=== PATIENT | female | born 1970 | race Caucasian/White ===

== ENCOUNTER 2019-08-04 06:34 | Outpatient (RCR) | payer OTHER, SELFPAY | END 2019-09-02 23:59 | disposition home or self-care (01) | LOC: SPT 06:34 | PROVIDERS: Family Provider Family Medicine; PCP Family Medicine; Referring Provider Specialist; Visit Provider Specialist | DX: M17.11 Unilateral primary osteoarthritis, right knee (principal) | CPT/HCPCS: 97001 ==

== ENCOUNTER 2019-09-03 06:00 | Outpatient (RCR) | payer OTHER, SELFPAY | END 2019-10-01 23:59 | disposition home or self-care (01) | LOC: SPT 06:00 | PROVIDERS: Family Provider Family Medicine; PCP Family Medicine; Referring Provider Specialist; Visit Provider Specialist | DX: M17.11 Unilateral primary osteoarthritis, right knee (principal); M25.561 Pain in right knee | CPT/HCPCS: 97110 ==

== ENCOUNTER 2019-10-02 06:00 | Outpatient (RCR) | payer OTHER, SELFPAY | END 2019-11-01 23:59 | disposition home or self-care (01) | LOC: SPT 06:00 | PROVIDERS: Family Provider Family Medicine; PCP Family Medicine; Referring Provider Specialist; Visit Provider Specialist | DX: M17.12 Unilateral primary osteoarthritis, left knee (principal) | CPT/HCPCS: 97110 ==

== ENCOUNTER 2019-11-02 06:00 | Outpatient (RCR) | payer OTHER, SELFPAY | END 2019-12-01 23:59 | disposition home or self-care (01) | LOC: SPT 06:00 | PROVIDERS: Family Provider Family Medicine; PCP Family Medicine; Referring Provider Specialist; Visit Provider Specialist | DX: M17.11 Unilateral primary osteoarthritis, right knee (principal) | CPT/HCPCS: 97110 ==

== ENCOUNTER → 2019-12-22 09:01 | Outpatient (BNVA) | payer OTHER, SELFPAY | PROVIDERS: Family Provider Family Medicine; PCP Family Medicine; Visit Provider Nurse Practitioner Family | DX: N39.41 Urge incontinence (principal); R35.0 Frequency of micturition | CPT/HCPCS: 81001 ==

== ENCOUNTER → 2020-04-26 12:55 | Outpatient (BNVA) | payer OTHER, SELFPAY | PROVIDERS: Family Provider Family Medicine; Visit Provider Nurse Practitioner Family | DX: R35.0 Frequency of micturition (principal) | CPT/HCPCS: 81001 ==

== ENCOUNTER → 2020-05-22 13:46 | Outpatient (BNVA) | payer OTHER, SELFPAY | PROVIDERS: Family Provider Family Medicine; Visit Provider Nurse Practitioner Family | DX: N39.41 Urge incontinence (principal); R35.0 Frequency of micturition | CPT/HCPCS: 81003 ==

== ENCOUNTER 2020-05-24 11:00 | Outpatient (CLI) | payer OTHER, SELFPAY ==
--- NOTE | 2020-05-24 11:06 | MM_ITS ---
WS: [id number] BILATERAL DIGITAL SCREENING MAMMOGRAPHY WITH CAD CLINICAL INFORMATION: SCREENING HISTORY: Screening mammogram. No current complaints. COMPARISON: July 13, 2018 TECHNIQUE: Bilateral CC and MLO views. FINDINGS: Scattered fibroglandular densities bilaterally. No suspicious focal mass, asymmetry, calcifications, or architectural distortion. No evidence of malignancy. MM/[place] [id number] IMPRESSION: BI-RADS: 1-Negative FOLLOW UP: 1 Year Follow-up Recommend return to annual screening mammography.
== END 2020-05-24 11:01 | disposition home or self-care (01) ==
LOC: RADSHAW 11:03
PROVIDERS: PCP Family Medicine; Visit Provider Family Medicine
DX: Z12.31 Encounter for screening mammogram for malignant neoplasm of breast (principal)
CPT/HCPCS: 77067

== ENCOUNTER → 2020-08-10 11:55 | Outpatient (BNVA) | payer OTHER, SELFPAY | PROVIDERS: PCP Family Medicine; Visit Provider Nurse Practitioner Family | DX: R35.0 Frequency of micturition (principal); N39.41 Urge incontinence | CPT/HCPCS: 81003 ==

== ENCOUNTER 2020-09-07 12:42 | Emergency (ER) | payer OTHER, SELFPAY ==
[2020-09-07 12:49] VITALS: BP 201/132; PULSE 96; RESP 24; TEMP 37.1; O2SAT 96; BMI 79.0
[2020-09-07 13:09] VITALS: PULSE 93; RESP 23; O2SAT 88
--- NOTE | 2020-09-07 13:17 | ECG_ITS ---
[facility] Test Date: 2020-09-07 Pat Name: Leda Huerta Department: Room: Gender: Female Lead Electrical Controls Engineer: : 1970 Requested By: Amna Benton I Order Number: [id number] Reading MD: Javier Maher M.D. Measurements Intervals [place] Rate: 76 P: 43 MS: 128 QRS: 66 QRSD: 116 T: 42 QT: 361 QTc: 406 Interpretive Statements SINUS RHYTHM MODERATE INTRAVENTRICULAR CONDUCTION DELAY [110+ ms QRS DURATION] Compared to ECG 08/06/2018 14:35:55 Intraventricular conduction delay now present Electronically Signed On 09-08-2020 10:54:48 AVIONICS MECHANIC by Javier Maher M.D. [id number]
[2020-09-07 13:36] LABS: Basophils % 0.4 %; Eosinophils # 0.1 10^3/uL (0.0-0.8); Hematocrit 40.2 % (37.0-47.0); Hemoglobin 12.7 g/dL (11.5-15.3); Lymphocytes # 1.9 10^3/uL (0.8-4.8); Mean Corpuscular HGB Conc 31.6 g/dL (30.0-36.0); Mean Corpuscular Hemoglobin 28.1 pg (28.0-34.0); Mean Corpuscular Volume 88.9 fL (81-99); Mean Platelet Volume 10.5 fL (7.4-10.4); Monocytes # 0.5 10^3/uL (0.2-0.9); Monocytes % 6.8 %; Neutrophils # 4.38 10^3/uL (1.8-7.7); Neutrophils % 63.4 %; Nucleated Red Blood Cells % 0 %; Platelet Count 216 10^3/cmm (130-400); Red Blood Count 4.52 10^6/uL (4.1-5.3); Red Cell Distribution Width 12.8 % (12.1-15.1); White Blood Count 6.9 10^3/uL (4.0-10.0)
[2020-09-07 13:56] LABS: Alanine Aminotransferase 19 U/L (0-33); Albumin Level 4.1 g/dL (3.5-5.2); Alkaline Phosphatase 92 IU/L (35-105); Anion Gap 12.9 (5-19); Aspartate Amino Transferase 15 U/L (0-32); Blood Urea Nitrogen 14 mg/dL (6-20); Calcium 9.3 mg/dL (8.5-10.5); Carbon Dioxide 25 mmol/L (22-29); Chloride 103 mmol/L (98-107); Globulin 2.8 g/dL (1.3-4.6); Glomerular Filtration Rate 131.7 mL/min (90-130); Glucose 108 mg/dL (65-115); Osmolality Calculated 285 mOsm/kg (285-295); Potassium 3.9 mmol/L (3.5-5.1); Sodium 137 mmol/L (136-145); Total Bilirubin 0.3 mg/dL (0.15-1.2); Total Protein 6.9 g/dL (6.6-8.7)
[2020-09-07 13:57] LABS: Troponin(5th) Baseline 9 ng/L (0-10)
--- NOTE | 2020-09-07 13:57 | ED_ITS ---
HPI - General Adult General: Chief complaint: General Medical Stated complaint: high bp Time Seen by Provider: 09/07/20 12:55 Source: patient Mode of arrival: ambulatory Limitations: no limitations History of Present Illness: HPI narrative: This 50-year-old female patient presents to the emergency department with elevated blood pressure. She has been noticing that her blood pressure has been elevated in the last few weeks with associated vertigo and headache. Today about 10 AM she developed another headache and was not feeling right so she checked her blood pressure and it was significantly elevated at 188/100. She was then advised to come to the emergency department to be evaluated. She says her headache is much better now although it is not gone completely, she is no longer dizzy. Her blood pressure was very high in the ED and the systolic was above 200 on first check. She denies any chest pain, nausea or vomiting. Denies any urinary symptoms. Denies any difficulty breathing. Associated symptoms: Reports headache(s); Deny dyspnea, nausea, rash, palpitations or vomiting Review of Systems General: Reports: 10 or more systems reviewed and unremarkable except in HPI and below Const: Denies: fever(s), chills or body aches Eyes: Denies: change in vision or blurry vision ENMT: Denies: throat pain, enlarged tonsils, odynophagia, hoarseness, mouth pain or swelling of lips/tongue Card: Denies: palpitations, irregular heart rhythm, edema or swelling of feet/ankles Resp: Denies: dyspnea, productive cough or non-productive cough GI: Denies: abdominal pain, nausea or vomiting : Denies: flank pain, difficulty voiding, dysuria, urinary frequency, urinary urgency or urinary hesitancy Musc: Denies: neck pain, back pain or extremity swelling Skin/Breast: Denies: rash, pruritus or erythema Neuro: Reports: headache(s); Denies: numbness in extremities or weakness in extremities Endo: Denies: polyuria, polydipsia or tired all the time [facility] ED PFSH: Medical History (Updated 09/07/20 @ 15:40 by Amna Benton MD, [facility] [place]) Hypertension Morbid obesity with BMI of 70 and over, adult Peroneal tendinitis Primary osteoarthritis of right knee Urgency incontinence Urinary frequency Surgical History Hx of cholecystectomy Hx of foot surgery Family History Father Diabetes Other Cancer Social History Smoking and tobacco status: never smoked Alcohol intake: never Adopted: No Caregiver/support person: No Lives independently: Yes Marital status: Current occupational status: employed History of recent travel: No Current gender identity: Female Physical Exam Const: COMMON NORMALS: no acute distress, patient oriented x3, no limitations, alert and well nourished NUTRITIONAL APPEARANCE: obese morbidly obese HENMT: COMMON NORMALS: normocephalic, atraumatic and moist oral mucous membr anes HEAD & SCALP: normocephalic and atraumatic Neck/C-Spine: COMMON NORMALS: no meningeal signs and no JVD Resp: COMMON NORMALS: normal respiratory effort, No retractions, No use of accessory muscles, clear to auscultation bilaterally and percussion normal AUSCULTATION: clear to auscultation bilaterally PERCUSSION: percussion normal Cardio: COMMON NORMALS: no JVD, regular rate, regular rhythm, S1 normal heart sound present, S2 normal heart sound present, No gallops present (Cardio), No clicks present (Cardio), No murmurs present (Cardio), No rub (Cardio) and Peripheral pulses 2+ throughout RATE: regular rate RHYTHM: regular rhythm HEART SOUNDS: S1 normal heart sound present and S2 normal heart sound present PERIPHERAL PULSES: Peripheral pulses 2+ throughout GI: COMMON NORMALS: Normal to inspection, nondistended, normoactive bowel sounds present, Soft to palpation, non-tender, No hepatosplenomegaly present, no masses and no bruits PALPATION: Yes Soft to palpation and Yes No hepatosplenomegaly present Extremity: COMMON NORMALS: normal to inspection, full ROM, capillary refill normal, no calf tenderness and no pedal edema Neuro: COMMON NORMALS: patient oriented x3 SENSORIUM/ORIENTATION: Yes alert MENINGEAL SIGNS: Yes no meningeal signs Skin: COMMON NORMALS: no rashes or lesions noted, no wounds, turgor normal, no jaundice, no petechiae and no mottling GENERAL SKIN EXAM: no rashes or lesions noted and turgor normal Course Reevaluation(s): Reevaluation #1: Discussed her lab findings with her. Negat harshal for acute findings. Negative high-sensitivity troponin. Renal function is unremarkable. Blood pressure has improved. We will send her home with a prescription for lisinopril. She is advised to discontinue Myrbetriq and to follow-up with her primary care for another medication. She voiced understanding and is in agreement with the plan. Time: 15:40 Vital Signs: Vital signs: Vital Signs Temperature 98.7 F 09/07/20 12:49 Pulse Rate 85 09/07/20 14:55 Respiratory Rate 24 H 09/07/20 14:55 Blood Pressure 160/110 09/07/20 14:55 Pulse Oximetry 99 09/07/20 14:55 MDM - General Adult MDM Narrative: Medical decision making narrative: 50-year-old female patient with no prior history of hypertension presents to the emergency department with elevated blood pressure. She recently started a medication that could be contributing to her elevated blood pressure. She has noticed her blood pressure has been elevated basically from the beginning of the year. Blood pressure significantly elevated in the ED but no significant end organ damage. She was given a dose of hydralazine in the emergency department as her blood pressure was significantly elevated. She is discharged home with a prescription for lisinopril and she is to start it if her blood pressure remains elevated at home. Lab Data: Labs: Lab Results 09/07/20 09/07/20 09/07/20 Range/Units 13:00 13:00 13:00 WBC 6.9 (4.0-10.0) 10^3/ uL RBC 4.52 (4.1-5.3) 10^6/u L Hgb 12.7 (11.5-15.3) g/dL Hct 40.2 (37.0-47.0) % MCV 88.9 (81-99) fL MCH 28.1 (28.0-34.0) pg MCHC 31.6 (30.0-36.0) g/dL RDW 12.8 (12.1-15.1) % Plt Count 216 (130-400) 10^3/c mm MPV 10.5 H (7.4-10.4) fL Neut % (Auto) 63.4 % Lymph % (Auto) 27.0 % [place] % (Auto) 6.8 % Eos % (Auto) 2.0 % Baso % (Auto) 0.4 % Neut # (Auto) 4.38 (1.8-7.7) 10^3/u L Lymph # (Auto) 1.9 (0.8-4.8) 10^3/u L [place] # (Auto) 0.5 (0.2-0.9) 10^3/u L Eos # (Auto) 0.1 (0.0-0.8) 10^3/u L Baso # (Auto) 0.0 (0.0-0.1) 10^3/u L Nucleated RBC % (a uto) 0 % Nucleated RBCs # 0.0 /100WBC Sodium 137 (136-145) mmol/L Potassium 3.9 (3.5-5.1) mmol/L Chloride 103 (98-107) mmol/L Carbon Dioxide 25 (22-29) mmol/L Anion Gap 12.9 (5-19) BUN 14 (6-20) mg/dL Creatinine 0.5 (0.5-0.9) mg/dL GFR Calculation 131.7 H (90-130) mL/min Glucose 108 (65-115) mg/dL Calculated Osmolal ity 285 (285-295) mOsm/k g Calcium 9.3 (8.5-10.5) mg/dL Total Bilirubin 0.3 (0.15-1.2) mg/dL AST 15 (0-32) U/L ALT 19 (0-33) U/L Alkaline Phosphata se 92 (35-105) IU/L Troponin T Baselin e 9 (0-10) ng/L Total Protein 6.9 (6.6-8.7) g/dL Albumin 4.1 (3.5-5.2) g/dL Globulin 2.8 (1.3-4.6) g/dL EKG Data^: EKG 1: Attestation: I personally reviewed and interpreted this EKG as follows: EKG interpretation date: 09/07/20 EKG interpretation time: 13:40 Prior EKG tracings: not available for review Interpretation: Normal sinus rhythm. Heart rate [address] changes. EKG 2: Attestation: I personally reviewed and interpreted this EKG as follows: EKG interpretation date: 09/07/20 EKG interpretation time: 15:11 Prior EKG tracings: available for review Interpretation: Normal sinus rhythm. Heart rate [address] changes. Unchanged from earlier. Discharge Plan Discharge Patient Disposition: Home Clinical Impression: Hypertension Qualifiers: Hypertension type: essential hypertension Qualified Code(s): I10 - Essential (primary) hypertension Condition: Stable Prescriptions: New lisinopril 10 mg tablet 10 mg PO DAILY Qty: 30 RF: 0 Continued medroxyprogesterone [Depo-Provera] 150 mg/mL suspension See Rx Instructions .ROUTE .COMPLEX RF: 0 fluticasone propionate [Children's Flonase Allergy Rlf] 50 mcg/actuation spray,suspension 1 spray INTRANASAL DAILY@06 RF: 0 celecoxib [Celebrex] 200 mg capsule 200 mg PO BID Qty: 60 RF: 0 hydrocodone-acetaminophen 7.5-300 mg tablet 1 tab PO BID PRN (Reason: Pain) RF: 0 Discontinued Myrbetriq 25 mg tablet extended release 24 hr 25 mg PO DAILY@06 RF: 0 Discharge Orders: Discharge ED (Routine); Ordered 09/07/20 Ordered By: Amna Benton Referrals: Joselin Rueda MD [Primary Care Provider] - 1-3 days Discharge Diet: Usual diet Discharge Activity: Increase activity as tolerated Patient Instructions: Hypertension (ED) Activity Restrictions/Additional Instructions: Return for any new or worsening symptoms. Follow-up with your primary care provider within 3 days. Take the antihypertensives if your blood pressure remains elevated. I would like you to discontinue the Myrbetriq as it may be contributing to hypertension. Consume a low-salt diet. Coding Level of Care Code ED Refinery Operator Coking for Chg Fwd Exam Comprehensive
[2020-09-07 14:05] VITALS: PULSE 78; RESP 100; O2SAT 100
[2020-09-07 14:18] VITALS: BP 200/110; O2SAT 96
[2020-09-07 14:55] VITALS: BP 160/110; PULSE 85; RESP 24; O2SAT 99
[2020-09-07] MEDS: hyDRALAzine 25 mg Tablet PO (14:55)
--- NOTE | 2020-09-07 15:17 | ECG_ITS ---
[facility] Test Date: 2020-09-07 Pat Name: Leda Huerta Department: Room: Gender: Female Power Tong Operator: : 1970 Requested By: Amna Benton I Order Number: [id number] Reading MD: Javier Maher M.D. Measurements Intervals [place] Rate: 78 P: 35 MA: 157 QRS: 73 QRSD: 119 T: 38 QT: 368 QTc: 420 Interpretive Statements SINUS RHYTHM WITH SINUS ARRHYTHMIA POSSIBLE INFERIOR MYOCARDIAL INFARCTION , PROBABLY OLD [30 ms Q WAVE IN II/aVF] Compared to ECG 09/07/2020 13:39:53 Myocardial infarct finding now present Intraventricular conduction delay no longer present Electronically Signed On 09-08-2020 11:08:20 BINGO CHECKER by Javier Maher M.D. [id number]
[2020-09-07 15:53] VITALS: BP 160/98; PULSE 77; O2SAT 96
== END 2020-09-07 15:54 | disposition home or self-care (01) ==
PROVIDERS: Emergency Provider Family Medicine; PCP Family Medicine
DX: I10 Essential (primary) hypertension (principal)
CPT/HCPCS: 12345; 80053; 84484; 85025; 93005; 99281; 99283

== ENCOUNTER → 2021-04-18 13:02 | Outpatient (BNVA) | payer OTHER, SELFPAY | PROVIDERS: PCP Family Medicine; Visit Provider Nurse Practitioner Family | DX: I10 Essential (primary) hypertension (principal); N39.9 Disorder of urinary system, unspecified | CPT/HCPCS: 80048 ==

== ENCOUNTER → 2021-04-30 15:50 | Outpatient (BNVA) | payer OTHER, SELFPAY | PROVIDERS: PCP Family Medicine; Visit Provider Podiatrist Foot & Ankle Surgery | DX: M79.672 Pain in left foot (principal) | CPT/HCPCS: 73610; 73630 ==

== ENCOUNTER 2022-09-30 12:52 | Emergency (ER) | payer OTHER, SELFPAY ==
[2022-09-30] VITALS (7 sets, daily range): BP systolic 150–220; BP diastolic 90–115; PULSE 64–92; RESP 18–20; TEMP 36.6; O2SAT 92–100; BMI 80.6
--- NOTE | 2022-09-30 13:20 | XR_ITS ---
WS: [id number] Portable AP upright chest, 09/30/2022 Clinical Data: dyspnea/cough Comparison: Portable chest, 08/06/2018. Findings: No nodules, masses or effusions are seen. The heart is slightly enlarged. The pulmonary vas cularity is not increased. No pneumonia or pneumothorax is seen. XR/XR chest 1V portable [id number] Impression: Cardiomegaly.
--- NOTE | 2022-09-30 13:49 | ECG_ITS ---
[facility] Test Date: 2022-09-30 Pat Name: Leda Huerta Department: Room: Gender: Female Wafer Fabrication Technician: : 1970 Requested By: Reji Vega Order Number: [id number] Lyric MD: Ana Maria اعلراقي M.D. Measurements Intervals [place] Rate: 75 P: 66 CT: 148 QRS: 93 QRSD: 104 T: 10 QT: 365 QTc: 410 Interpretive Statements Possible sinus rhythm with a sinus arrhythmia. Because of the baseline artifact, difficult to discern the rhythm BORDERLINE RIGHT AXIS DEVIATION [QRS AXIS > 90] NONSPECIFIC ST & T-WAVE ABNORMALITY Compared to ECG 09/07/2020 15:11:13 T-wave abnormality now present Myocardial infarct finding no longer present Electronically Signed On 10-01-2022 14:10:52 DRAFTER REFRIGERATION by Ana Maria العراقي M.D. [id number]
[2022-09-30] MEDS: hyDRALAzine 20 mg/mL INJ 1 mL 10 MG IVP (13:56)
[2022-09-30] MEDS: amlodipine 10 mg Tablet PO (14:02)
[2022-09-30 14:03] LABS: Basophils % 0.4 %; Eosinophils # 0.1 10^3/uL (0.0-0.8); Eosinophils % 1.7 %; Hematocrit 40.1 % (37.0-47.0); Hemoglobin 12.8 g/dL (11.5-15.3); Lymphocytes % 24.8 %; Mean Corpuscular HGB Conc 31.9 g/dL (30.0-36.0); Mean Corpuscular Hemoglobin 29.4 pg (28.0-34.0); Mean Platelet Volume 11.6 fL (7.4-10.4); Monocytes # 0.5 10^3/uL (0.2-0.9); Monocytes % 6.6 %; Neutrophils # 5.18 10^3/uL (1.8-7.7); Neutrophils % 65.7 %; Nucleated Red Blood Cells % 0 %; Platelet Count 247 10^3/cmm (130-400); Red Blood Count 4.36 10^6/uL (4.1-5.3); Red Cell Distribution Width 13.8 % (12.1-15.1); White Blood Count 7.9 10^3/uL (4.0-10.0)
--- NOTE | 2022-09-30 14:28 | ED_ITS ---
HPI - General Adult General: Chief complaint: General Medical Stated complaint: high bp Time Seen by Provider: 09/30/22 13:19 Source: patient Mode of arrival: ambulatory History of Present Illness: 60-year-old female presents to the emergency room with complaints of elevated blood pressure. She states last night she felt like she had a syncopal episode when she tried to get out of bed. She has no symptoms denies any chest pain no difficulty with vision speech or swallowing. Patient currently is on lisinopril 10 mg daily. She has a BMI of 81. And is difficult to get an accurate blood pressure. Onset (ago): hour(s) Associated symptoms: Deny chest pain, confusion, cough, diaphoresis, decreased appetite, dyspnea, fevers/chills, headache(s), malaise, nausea, rash, palpitations, seizures, short of breath, syncope, vomiting or weakness Review of Systems Const: Denies: fever(s), chills, fatigue, malaise or diaphoresis ENMT: Denies: throat pain, ear or mastoid pain, nasal discharge or nasal congestion Card: Denies: chest pain, palpitations or syncope Resp: Denies: dyspnea GI: Denies: abdominal pain, nausea or vomiting : Denies: flank pain, difficulty voiding, dysuria, urinary frequency or urinary urgency Musc: Denies: neck pain or back pain Skin/Breast: Denies: rash or pruritus Neuro: Denies: headache(s) or confusion PFS ED PFSH: Medical History (Updated 09/30/22 @ 16:33 by Reji Jaimes DO) Hypertension Morbid obesity with BMI of 70 and over, adult Peroneal tendinitis Primary osteoarthritis of right knee Urgency incontinence Urinary frequency Surgical History Hx of cholecystectomy Hx of foot surgery Family History Father Diabetes Other Cancer Social History Smoking and tobacco status: never smoked Alcohol intake: never Adopted: No Caregiver/support person: No Lives independently: Yes Marital status: Current occupational status: employed Current gender identity: Female Physical Exam Const: COMMON NORMALS: no acute distress GENERAL APPEARANCE: cooperative and comfortable ORIENTATION/CONSCIOUSNESS: Yes awake, Yes oriented to person, Yes oriented to place and Yes oriented to time HENMT: COMMON NORMALS: normocephalic, atraumatic and hearing grossly normal bilaterally HEAD & SCALP: normocephalic and atraumatic Resp: COMMON NORMALS: normal respiratory effort, No retractions, No use of acc essory muscles and clear to auscultation bilaterally AUSCULTATION: clear to auscultation bilaterally Cardio: COMMON NORMALS: regular rate, regular rhythm and No murmurs present (Cardio) RATE: regular rate RHYTHM: regular rhythm GI: COMMON NORMALS: Soft to palpation and No hepatosplenomegaly present AUSCULTATION: Yes normoactive bowel sounds PALPATION: Yes Soft to palpation, No Tenderness to palpation present (GI), No Guarding due to palpation present (G I) and Yes No hepatosplenomegaly present Extremity: COMMON NORMALS: normal to inspection, capillary refill normal, no clubbing, cyanosis or edema, no calf tenderness and no pedal edema Neuro: SENSORIUM/ORIENTATION: Yes oriented to person, Yes oriented to place and Yes oriented to time Skin: COMMON NORMALS: no rashes or lesions noted GENERAL SKIN EXAM: no rashes or lesions noted Course Vital Signs: Vital signs: Vital Signs Temperature 97.9 F 09/30/22 12:57 Pulse Rate 92 09/30/22 16:44 Respiratory Rate 18 09/30/22 16:44 Blood Pressure 150/90 09/30/22 16:44 Pulse Oximetry 99 09/30/22 16:44 Oxygen Delivery Me thod 09/30/22 16:43 MDM - General Adult Medical Decision Making Patient reports a near syncopal episode that occurred last night she has no other symptoms at this time labs imaging EKG all reviewed in the chart there is no evidence of any acute ST changes otherwise is unremarkable. We will discharge the patient home with the following changes. Increase lisinopril to 20 twice daily add metoprolol 25 p.o. daily and amlodipine 10 p.o. daily. Recheck her blood pressure with your primary care doctor within the next week return to the ER if she has further problems. Medical Records I reviewed the patient's medical records. Lab Data I reviewed the patient's lab results. 09/30/22 13:56 09/30/22 13:56 Radiology Impressions Chest X-Ray 09/30/22 13:20 Impression: Cardiomegaly. Laboratory Results WBC 7.9 10^3/uL (4.0-10.0) 09/30/22 13:56 RBC 4.36 10^6/uL (4.1-5.3) 09/30/22 13:56 Hgb 12.8 g/dL (11.5-15.3) 09/30/22 13:56 Hct 40.1 % (37.0-47.0) 09/30/22 13:56 MCV 92.0 fl (81-99) 09/30/22 13:56 MCH 29.4 pg (28.0-34.0) 09/30/22 13:56 MCHC 31.9 g/dL (30.0-36.0) 09/30/22 13:56 RDW 13.8 % (12.1-15.1) 09/30/22 13:56 Plt Count 247 10^3/cmm (130-400) 09/30/22 13:56 MPV 11.6 fL (7.4-10.4) H 09/30/22 13:56 Neut % (Auto) 65.7 % 09/30/22 13:56 Lymph % (Auto) 24.8 % 09/30/22 13:56 [place] % (Auto) 6.6 % 09/30/22 13:56 Eos % (Auto) 1.7 % 09/30/22 13:56 Baso % (Auto) 0.4 % 09/30/22 13:56 Neut # (Auto) 5.18 10^3/uL (1.8-7.7) 09/30/22 13:56 Lymph # (Auto) 2.0 10^3/uL (0.8-4.8) 09/30/22 13:56 [place] # (Auto) 0.5 10^3/uL (0.2-0.9) 09/30/22 13:56 Eos # (Auto) 0.1 10^3/uL (0.0-0.8) 09/30/22 13:56 Baso # (Auto) 0.0 10^3/uL (0.0-0.1) 09/30/22 13:56 Nucleated RBC % (auto) 0 % 09/30/22 13:56 Nucleated RBCs # 0.0 /100WBC 09/30/22 13:56 Sodium 139 mmol/L (136-145) 09/30/22 14:39 Potassium 3.7 mmol/L (3.5-5.1) 09/30/22 14:39 Chloride 103 mmol/L (98-107) 09/30/22 14:39 Carbon Dioxide 23 mmol/L (22-29) 09/30/22 14:39 Anion Gap 16.7 (5-19) 09/30/22 14:39 BUN 10 mg/dL (6-20) 09/30/22 14:39 Creatinine 0.6 mg/dL (0.5-0.9) 09/30/22 14:39 GFR Calculation 105.8 mL/min (90-130) 09/30/22 14:39 Glucose 95 mg/dL (65-115) 09/30/22 14:39 Calculated Osmolality 287 mOsm/kg (285-295) 09/30/22 14:39 Calcium 9.0 mg/dL (8.5-10.5) 09/30/22 14:39 Discharge Plan Discharge Patient Disposition: Home Clinical Impression: HTN (hypertension) Condition: Stable Prescriptions: New lisinopril 20 mg tablet 20 mg PO BID Qty: 60 0RF amlodipine 10 mg tablet 10 mg PO DAILY Qty: 30 0RF Toprol XL 25 mg tablet extended release 24 hr 25 mg PO DAILY Qty: 30 0RF Discontinued lisinopril 10 mg tablet 10 mg PO BID No Action medroxyprogesterone [Depo-Provera] 150 mg/mL suspension See Rx Instructions .ROUTE .COMPLEX Rx Instructions: 150 mg intramuscularly every 9 weeks fluticasone propionate [Children's Flonase Allergy Rlf] 50 mcg/actuation spray,suspension 1 spray INTRANASAL DAILY@06 meloxicam 7.5 mg tablet 7.5 mg PO DAILY hydrocodone-acetaminophen 7.5-300 mg tablet 1 tab PO BID PRN gabapentin 400 mg capsule 200 mg PO DAILY Discharge Orders: Discharge ED (Routine); Ordered 09/30/22 Ordered By: Reji Jaimes Referrals: Joselin Rueda MD [Primary Care Provider] - Discharge Diet: Usual diet Discharge Activity: Limit activity as instructed Patient Instructions: Opioid Safety, Pain Management Activity Restrictions/Additional Instructions: You are seen today for elevated blood pressure. Recommend that you increase your lisinopril to 20 mg twice daily, add amlodipine 10 mg daily and metoprolol 25 p.o. daily. You should recheck your blood pressure with your primary care doctor within the next 7 to 10 days. Coding Level of Care Code ED Shipper/Receiver for Joel Fair
[2022-09-30 15:08] LABS: Anion Gap 16.7 (5-19); Blood Urea Nitrogen 10 mg/dL (6-20); Carbon Dioxide 23 mmol/L (22-29); Chloride 103 mmol/L (98-107); Glomerular Filtration Rate 105.8 mL/min (90-130); Glucose 95 mg/dL (65-115); Osmolality Calculated 287 mOsm/kg (285-295); Potassium 3.7 mmol/L (3.5-5.1); Sodium 139 mmol/L (136-145)
--- NOTE | 2022-09-30 15:58 | PC.NURSE ---
AMLODIPINE HELD PER DR. SIMMS
[2022-09-30] MEDS: labetalol 5 mg/mL SDV 20mL 10 MG IVP (16:04)
== END 2022-09-30 16:46 | disposition home or self-care (01) ==
PROVIDERS: Emergency Provider Family Medicine; PCP Family Medicine
DX: I10 Essential (primary) hypertension (principal); E66.01 Morbid (severe) obesity due to excess calories; Z68.45 Body mass index [BMI] 70 or greater, adult
CPT/HCPCS: 36415; 71045; 80048; 85025; 93005; 96374; 96375; 99285; J0360; J3490

== ENCOUNTER 2022-11-03 06:45 | Outpatient (CLI) | payer OTHER, SELFPAY ==
--- NOTE | 2022-11-03 07:08 | USCV_ITS ---
Leda Huerta Age: 52 Gender: F : 1970 Exam Date: 11/03/2022 07:23 Ordering Phys: Joselin Rueda MD Technologist: Exam Location: [facility] [place] Indication: pedal edema BP: / HR: Rhythm: Sinus Technical Quality: Very technically difficult study MEASUREMENTS (Male / Female) Normal Values FINDINGS Left Ventricle Right Ventricle Right Atrium Left Atrium Mitral Valve Aortic Valve Tricuspid Valve Pulmonic Valve Pericardium Aorta IVC CONCLUSIONS No echo windows found to obtain imaging. No cardiac structures could be visualized. Javier Maher MD (Electronically Signed) Final Date: 15 November 2022 14:04 S
== END 2022-11-03 06:46 | disposition home or self-care (01) ==
PROVIDERS: PCP Family Medicine; Visit Provider Family Medicine
DX: I51.7 Cardiomegaly (principal)
CPT/HCPCS: 93306

== ENCOUNTER 2023-09-25 07:16 | Outpatient (CLI) | payer OTHER, SELFPAY ==
--- NOTE | 2023-09-25 07:37 | MM_ITS ---
WS: [id number] SCREENING DIGITAL TOMOSYNTHESIS MAMMOGRAM WITH CAD HISTORY: SCREENING COMPARISON: 05/24/2020, 07/13/2018 Bilateral CC and MLO with tomosynthesis views submitted. Synthetic mammography reviewed. Computer aid ed detection analyzed. Breast composition: The breasts are almost entirely fatty. No suspicious masses, microcalcifications or architectural distortion. IMPRESSION: MM/[place] [id number] BI-RADS: 1-Negative FOLLOW UP: 1 Year Follow-up
== END 2023-09-25 07:17 | disposition home or self-care (01) ==
LOC: RAD 07:17
PROVIDERS: PCP Family Medicine; Visit Provider Family Medicine
DX: Z12.31 Encounter for screening mammogram for malignant neoplasm of breast (principal); R92.313 Mammographic fatty tissue density, bilateral breasts
CPT/HCPCS: 77063; 77067

== ENCOUNTER 2023-10-13 05:44 | Emergency (ER) | payer OTHER, SELFPAY ==
--- NOTE | 2023-10-13 05:52 | XRR_ITS ---
PROCEDURE INFORMATION: Exam: XR Chest Exam date and time: 10/13/2023 6:15 AM Age: 53 years old Clinical indication: Pain; Left-sided; Additional info: Dyspnea/cough TECHNIQUE: Imaging protocol: Radiologic exam of the chest. Views: 1 view. COMPARISON: CR XR chest 1V portable [id number] 09/30/2022 1:32 PM FINDINGS: Lungs: Unremarkable. No consolidation. Pleural spaces: Unremarkable. No pleural effusion. No pneumothorax. Heart/Mediastinum: Unremarkable. No cardiomegaly. Bones/joints: Unremarkable. XR/XR chest 1V portable [id number] IMPRESSION: No acute findings.
[2023-10-13 06:06] VITALS: BP 153/64; PULSE 92; RESP 24; TEMP 36.6; O2SAT 98; BMI 57.7
--- NOTE | 2023-10-13 06:19 | ED_ITS ---
HPI - Abdominal Pain 2 General: Chief Complaint: Abdominal Pain Stated Complaint: severe left abd pain up to shoulder and chst Time Seen by Provider: 10/13/23 05:51 Source: patient Mode of arrival: ambulatory History of Present Illness: 53-year-old female who presents to the e mergency room complaining of left lower quadrant abdominal pain that began this morning when she got up to go to the bathroom. She denies any hematuria no history of kidney stone she has previously had bariatric surgery with a significant amount of weight loss. No vomiting or diarrhea. She has a midline abdominal wall hernia but sometimes will cause discomfort but she has not had any vomiting associated with this no bloody diarrhea. MD elicited complaint: abdominal pain Pertinent past history: other (hx gastric bypass 12/2022) Onset (ago): hour(s) Pain Consistency: constant Location: LLQ Quality: cramping Radiation: none Exacerbating factors: movement Relieving factors: nothing Associated Symptoms: Denies anorexia, belching, bloating, change in bowel habits, change in stool character, chills, coffee ground emesis, constipation, GI cramping, diarrhea, dyspepsia, dysuria, excessive flatus, fever(s), heartburn, hematochezia, hematuria, hematemesis, fecal incontinence, loose stools, melena, nausea, poor appetite, syncope and vomiting Review of Systems 2 Const: Denies: fever(s) or chills Card: Denies: chest pain or syncope Resp: Denies: dyspnea GI: Denies: abdominal pain, nausea, vomiting, hematemesis, coffee ground emesis, heartburn, diarrhea, constipation, bloating, GI cramping, belching, excessive flatus, fecal incontinence, change in bowel habits, change in stool character, hematochezia or melena : Denies: dysuria, urinary frequency, urinary urgency or hematuria Musc: Denies: neck pain or back pain Skin/Breast: Denies: rash PFSH ED 2 PFSH: Medical History (Updated 10/13/23 @ 08:17 by Reji Jaimes DO) Peroneal tendinitis Hypertension Urinary frequency Urgency incontinence Primary osteoarthritis of right knee Morbid obesity with BMI of 70 and over, adult Surgical History Hx of foot surgery Hx of cholecystectomy Family History Father Diabetes Other Cancer Social History Smoking and tobacco/nicotine status: never used tobacco/nicotine Alcohol intake: current Alcohol intake frequency: holidays/special occasions only Substance/Drug Use: never Adopted: No Caregiver/support person: No Lives independently: Yes Marital status: Current occupational status: employed Current gender identity: Female Physical Exam 2 Const: COMMON NORMALS: no acute distress GENERAL APPEARANCE: cooperative and comfortable ORIENTATION/CONSCIOUSNESS: Yes awake, Yes oriented to person, Yes oriented to place and Yes oriented to time HENMT: COMMON NORMALS: normocephalic, atraumatic and hearing grossly normal bilaterally HEAD & SCALP: normocephalic and atraumatic Resp: COMMON NORMALS: normal respiratory effort, No retractions, No use of accessory muscles and clear to auscultation bilaterally AUSCULTATION: clear to auscultation bilaterally Cardio: COMMON NORMALS: regular rate, regular rhythm and No murmurs present (Cardio) RATE: regular rate RHYTHM: regular rhythm GI: COMMON NORMALS: Soft to palpation and No hepatosplenomegaly present A USCULTATION: Yes normoactive bowel sounds PALPATION: Yes Soft to palpation, No Tenderness to palpation present (GI), No Guarding due to palpation present (GI) and Yes No hepatosplenomegaly present Extremity: COMMON NORMALS: normal to inspection, capillary refill normal, no clubbing, cyanosis or edema, no calf tenderness and no pedal edema Neuro: SENSORIUM/ORIENTATION: Yes oriented to person, Yes oriented to place and Yes oriented to time Skin: COMMON NORMALS: no rashes or lesions noted GENERAL SKIN EXAM: no rashes or lesions noted Course 2 Vital Signs: Vital signs: Vital Signs Temperature 97.9 F 10/13/23 06:06 Pulse Rate 78 10/13/23 07:27 Respiratory Rate 16 10/13/23 07:14 Blood Pressure 170/95 10/13/23 08:17 Pulse Oximetry 100 10/13/23 08:17 Oxygen Delivery Me thod Room Air 10/13/23 08:17 MDM - Abdominal Pain Medical Decision Making CT shows no acute findings no evidence of obstruction. There is a small amount of fluid in the pelvis could be from an ovarian cyst she does have a cystitis as well on her labs but no significant leukocytosis. Her abdominal exam on repeat exam is benign. Will discharge her home with oral antibiotics return if she has further problems. She has become somewhat anemic compared to a hemoglobin from a year ago I suspect this is related to her bariatric surgery. Medical Records I reviewed the patient's medical records. Lab Data I reviewed the patient's lab results. 10/13/23 06:35 10/13/23 06:35 Labs/Radiology: Radiology Impressions Chest X-Ray 10/13/23 05:52 IMPRESSION: No acute findings. Abdomen/Pelvis CT 10/13/23 06:41 IMPRESSION: 1. Multiple nonobstructing right nephroliths. The largest has a staghorn appearance and measures up to 2.2 cm. 2. Lezo-jv-wvqaxbbq stranding about the suprapubic pannus. This may be incidental but can be seen with panniculitis. 3. Multiple umbilical/periumbilical ventral abdominal hernias. The largest is broad mouth and contains fat and bowel without evidence of strangulation or incarceration. 4. Small amount of nonspecific free fluid in the pelvis. 5. Fatty infiltration of the large bowel, primarily involving the cecum and ascending colon. This can be seen with longstanding inflammation. 6. Hepatic steatosis. Laboratory Results WBC 5.59 10^3/uL (3.29-11.43) 10/13/23 06:35 RBC 2.81 10^6/uL (3.85-5.65) L 10/13/23 06:35 Hgb 11.00 g/dL (11.27-16.99) L 10/13/23 06:35 Hct 32.2 % (36-47) L 10/13/23 06:35 MCV 114.6 fl (85-98) H 10/13/23 06:35 MCH 39.1 pg (27-33) H 10/13/23 06:35 MCHC 34.2 g/dL (30-55) 10/13/23 06:35 RDW 14.6 % (12.1-15.1) 10/13/23 06:35 Plt Count 198 10^3/cmm (157-399) 10/13/23 06:35 MPV 11.4 fL (7.4-10.4) H 10/13/23 06:35 Neut % (Auto) 82.0 % 10/13/23 06:35 Lymph % (Auto) 10.6 % 10/13/23 06:35 Emmet % (Auto) 6.6 % 10/13/23 06:35 Eos % (Auto) 0.2 % 10/13/23 06:35 Baso % (Auto) 0.2 % 10/13/23 06:35 Neut # (Auto) 4.59 10^3/uL (1.8-7.7) 10/13/23 06:35 Lymph # (Auto) 0.6 10^3/uL (0.8-4.8) L 10/13/23 06:35 Emmet # (Auto) 0.4 10^3/uL (0.2-0.9) 10/13/23 06:35 Eos # (Auto) 0.0 10^3/uL (0.0-0.8) 10/13/23 06:35 Baso # (Auto) 0.0 10^3/uL (0.0-0.1) 10/13/23 06:35 Nucleated RBC % (auto) 0 % 10/13/23 06:35 Nucleated RBCs # 0.0 /100WBC 10/13/23 06:35 Sodium 140 mmol/L (136-145) 10/13/23 06:35 Potassium 3.3 mmol/L (3.5-5.1) L 10/13/23 06:35 Chloride 107 mmol/L (98-107) 10/13/23 06:35 Carbon Dioxide 22 mmol/L (22-29) 10/13/23 06:35 Anion Gap 14.3 (5-19) 10/13/23 06:35 BUN 5 mg/dL (6-20) L 10/13/23 06:35 Creatinine 0.5 mg/dL (0.5-0.9) 10/13/23 06:35 GFR Calculation 130.1 mL/min (90-130) H 10/13/23 06:35 Glucose 96 mg/dL (65-115) 10/13/23 06:35 Calculated Osmolality 287 mOsm/kg (285-295) 10/13/23 06:35 Lactic Acid 1.8 mmol/L (0.5-2.2) 10/13/23 06:35 Calcium 8.3 mg/dL (8.5-10.5) L 10/13/23 06:35 Total Bilirubin 1.5 mg/dL (0.15-1.2) H 10/13/23 06:35 AST 50 U/L (0-32) H 10/13/23 06:35 ALT 25 U/L (0-33) 10/13/23 06:35 Alkaline Phosphatase 126 U/L (35-105) H 10/13/23 06:35 Total Protein 5.6 g/dL (6.6-8.7) L 10/13/23 06:35 Albumin 3.1 g/dL (3.5-5.2) L 10/13/23 06:35 Globulin 2.5 g/dL (1.3-4.6) 10/13/23 06:35 Lipase 8 U/L (13-60) L 10/13/23 06:35 Urine Color Straw (Yellow) 10/13/23 07:13 Urine Appearance Cloudy (CLEAR) A 10/13/23 07:13 Urine pH 7 (5-7) 10/13/23 07:13 Ur Specific [place] 1.000 (1.005-1.030) L 10/13/23 07:13 Urine Protein Neg (Negative) 10/13/23 07:13 Urine Glucose (UA) Norm (Normal) 10/13/23 07:13 Urine Ketones Negative (Negative) 10/13/23 07:13 Urine Blood 2+ (Negative) H 10/13/23 07:13 Urine Nitrate Negative (Negative) 10/13/23 07:13 Urine Bilirubin Neg (Negative) 10/13/23 07:13 Urine Urobilinogen Norm mg/dL (Negative) 10/13/23 07:13 Ur Leukocyte Esterase 2+ (Negative) H 10/13/23 07:13 Urine RBC 0-4 /hpf (0-2) H 10/13/23 07:13 Urine WBC 40-55 /hpf (0-5) H 10/13/23 07:13 Ur Squamous Epith Cells 0-4 /hpf (0-5) H 10/13/23 07:13 Amorphous Sediment Not Reportable 10/13/23 07:13 Urine Bacteria 1+ /hpf (NONE) H 10/13/23 07:13 Urine Mucus None /hpf 10/13/23 07:13 All radiology interpretation(s) finalized by discharge Discharge Plan Discharge Patient Disposition: Home Clinical Impression: Cystitis Condition: Stable Prescriptions: New Bactrim DS 800-160 mg tablet 1 tab PO BID 7 Days Qty: 14 0RF No Action medroxyprogesterone [Depo-Provera] 150 mg/mL suspension See Rx Instructions .ROUTE .COMPLEX Rx Instructions: 150 mg intramuscularly every 9 weeks fluticasone propionate [Children's Flonase Allergy Rlf] 50 mcg/actuation spray,suspension 1 spray INTRANASAL DAILY@06 meloxicam 7.5 mg tablet 7.5 mg PO DAILY hydrocodone-acetaminophen 7.5-300 mg tablet 1 tab PO BID PRN gabapentin 400 mg capsule 200 mg PO DAILY lisinopril 20 mg tablet 20 mg PO BID Qty: 60 0RF amlodipine 10 mg tablet 10 mg PO DAILY Qty: 30 0RF Toprol XL 25 mg tablet extended release 24 hr 25 mg PO DAILY Qty: 30 0RF Discharge Orders: Discharge ED (Routine); Ordered 10/13/23 Ordered By: Reji Jaimes Referrals: Joselin Rueda MD [Primary Care Provider] - Discharge Diet: Usual diet Discharge Activity: Increase activity as tolerated Patient Instructions: Urinary Tract Infection in Women (ED), Opioid Safety, Pain Management Activity Restrictions/Additional Instructions: Thank you for choosing [facility] for your healthcare needs today. Please realize this is an emergency room and that we are providing you with a medical screening exam and this may not be complete and all inclusive of all the testing and or work up that you may need to determine your ailment or severity of your illness. It is very important that you follow up as instructed or that you return to the Emergency Department should you have concerns or if your condition changes or worsens in any way. Coding Level of Care Code ED [employer]r for Joel Fair
--- NOTE | 2023-10-13 06:25 | ECG_ITS ---
[facility] Test Date: 2023-10-13 Pat Name: Leda Huerta Department: Room: Gender: Female [employer] Crewmember: : 1970 Requested By: Reji Vega Order Number: [id number] Lyric MD: Ana Maria العراقي M.D. Measurements Intervals Miracle Rate: 82 P: 45 OK: 153 QRS: 27 QRSD: 113 T: -6 QT: 397 QTc: 466 Interpretive Statements SINUS RHYTHM WITH SINUS ARRHYTHMIA POSSIBLE LEFT ATRIAL ENLARGEMENT [-0.1mV P-WAVE IN V1/V2] MODERATE INTRAVENTRICULAR CONDUCTION DELAY [110+ ms QRS DURATION] Compared to ECG 09/30/2022 13:49:42 Intraventricular conduction delay now present T-wave abnormality no longer present Electronically Signed On 10-13-2023 23:04:14 CDT by Ana Maria العراقي M.D. [email or web address]
--- NOTE | 2023-10-13 06:41 | CTR_ITS ---
PROCEDURE INFORMATION: Exam: CT Abdomen And Pelvis Without Contrast Exam date and time: 10/13/2023 6:56 AM Age: 53 years old Clinical indication: Abdominal pain; Localized; Left lower quadrant (llq); Prior surgery; Surgery date: 6+ months; Surgery type: Gastric bypass December 2022 TECHNIQUE: Imaging protocol: Computed tomography of the abdomen and pelvis without contrast. Radiation optimization: All CT scans at this facility use at least one of these dose optimization techniques: automated exposure control; mA and/or kV adjustment per patient size (includes targeted exams where dose is matched to clinical indication); or iterative reconstruction. COMPARISON: CT kidney stone [id number] 06/18/2017 4:41 AM RADIATION DOSE METRICS: Total DLP (mGy-cm): 2041.62 FINDINGS: Lungs: Visualized lung bases are clear. Liver: Hepatic steatosis. Gallbladder and bile ducts: Status post cholecystectomy. Pancreas: Rrzx-ne-gvjdoqsb atrophy of the pancreas. No pancreatic ductal dilation. Spleen: The spleen is unremarkable. Adrenal glands: The adrenal glands are unremarkable. Kidneys and ureters: Multiple nonobstructing right nephroliths. The largest has a staghorn appearance and measures up to 2.2 cm. No hydronephrosis or hydroureter. Stomach and bowel: Postsurgical changes about the stomach and epigastrium. Nonobstructive bowel-gas pattern. Fatty infiltration of the large bowel, primarily involving the cecum and ascending colon. Appendix: No evidence of acute appendicitis. Intraperitoneal space: Small amount of nonspecific free fluid in the pelvis. Vasculature: Aorta and its major branches are within normal limits. Lymph nodes: No suspicious lymphadenopathy. Urinary bladder: Urinary bladder is within normal limits. Reproductive: Uterus is poorly visualized and questionably absent. Bones/joints: No acute osseous findings. Soft tissues: Multiple umbilical/periumbilical ventral abdominal hernias. The largest is broad mouth and contains fat and bowel without evidence of strangulation or incarceration. Ahsj-yh-ktcqybhc stranding about the suprapubic pannus. Superficial soft tissues demonstrate mild diffuse anasarca. CT/CT abdomen pelvis con [id number] IMPRESSION: 1. Multiple nonobstructing right nephroliths. The largest has a staghorn appearance and measures up to 2.2 cm. 2. Peem-za-vnmcmrvu stranding about the suprapubic pannus. This may be incidental but can be seen with panniculitis. 3. Multiple umbilical/periumbilical ventral abdominal hernias. The largest is broad mouth and contains fat and bowel without evidence of strangulation or incarceration. 4. Small amount of nonspecific free fluid in the pelvis. 5. Fatty infiltration of the large bowel, primarily involving the cecum and ascending colon. This can be seen with longstanding inflammation. 6. Hepatic steatosis.
[2023-10-13 06:54] LABS: Basophils % 0.2 %; Eosinophils % 0.2 %; Hematocrit 32.2 % (36-47); Lymphocytes # 0.6 10^3/uL (0.8-4.8); Lymphocytes % 10.6 %; Mean Corpuscular HGB Conc 34.2 g/dL (30-55); Mean Corpuscular Hemoglobin 39.1 pg (27-33); Mean Corpuscular Volume 114.6 fl (85-98); Mean Platelet Volume 11.4 fL (7.4-10.4); Monocytes # 0.4 10^3/uL (0.2-0.9); Monocytes % 6.6 %; Neutrophils # 4.59 10^3/uL (1.8-7.7); Nucleated Red Blood Cells % 0 %; Platelet Count 198 10^3/cmm (157-399); Red Blood Count 2.81 10^6/uL (3.85-5.65); Red Cell Distribution Width 14.6 % (12.1-15.1); White Blood Count 5.59 10^3/uL (3.29-11.43)
--- NOTE | 2023-10-13 07:01 | PC.NURSE ---
TOOK OVER PT CARE AT THIS TIME.
[2023-10-13 07:14] VITALS: RESP 16; O2SAT 100
[2023-10-13 07:14] LABS: Alanine Aminotransferase 25 U/L (0-33); Albumin Level 3.1 g/dL (3.5-5.2); Alkaline Phosphatase 126 U/L (35-105); Anion Gap 14.3 (5-19); Aspartate Amino Transferase 50 U/L (0-32); Blood Urea Nitrogen 5 mg/dL (6-20); Calcium 8.3 mg/dL (8.5-10.5); Carbon Dioxide 22 mmol/L (22-29); Chloride 107 mmol/L (98-107); Creatinine Clr Calc Pharmacy 211.2619; Globulin 2.5 g/dL (1.3-4.6); Glomerular Filtration Rate 130.1 mL/min (90-130); Glucose 96 mg/dL (65-115); Lipase 8 U/L (13-60); Osmolality Calculated 287 mOsm/kg (285-295); Potassium 3.3 mmol/L (3.5-5.1); Sodium 140 mmol/L (136-145); Total Bilirubin 1.5 mg/dL (0.15-1.2); Total Protein 5.6 g/dL (6.6-8.7)
[2023-10-13] MEDS: morphine 4 mg/mL SDV 1 mL IVP (07:14)
[2023-10-13 07:15] LABS: Lactic Sepsis W/Reflex 1.8 mmol/L (0.5-2.2)
[2023-10-13] MEDS: ondansetron 2 mg/ML SDV 2 mL 4 MG IVP (07:15)
[2023-10-13] MEDS: sodium chloride 0.9% 1,000 ML 999 ML IV (07:16)
[2023-10-13 07:27] VITALS: PULSE 78; O2SAT 100
[2023-10-13 08:01] LABS: Add Urine Microscopic? YES; Bilirubin Urine Neg (Negative); Blood Urine 2+ (Negative); Glucose Urine UA Norm (Normal); Ketones Urine Negative (Negative); Leukocyte Esterase Urine 2+ (Negative); Nitrate Urine Negative (Negative); Protein Urine Neg (Negative); Urine Appearance Cloudy (CLEAR); Urine Color Straw (Yellow); Urobilinogen Urine Norm (Negative); pH Urine 7 (5-7)
[2023-10-13 08:05] LABS: Add Urine Culture? Yes; Bacteria Urine 1+ /hpf; RBC Urine 0-4 /hpf (0-2); Squamous Epithelial Cell Urine 0-4 /hpf (0-5); WBC Urine 40-55 /hpf (0-5)
[2023-10-13 08:17] VITALS: BP 170/95; O2SAT 100
== END 2023-10-13 08:35 | disposition home or self-care (01) ==
PROVIDERS: Emergency Provider Family Medicine; PCP Family Medicine
DX: N30.90 Cystitis, unspecified without hematuria (principal); I10 Essential (primary) hypertension
CPT/HCPCS: 36415; 71045; 74176; 80053; 81001; 83605; 83690; 85025; 87077; 87086; 87186; 93005; 96361; 96374; 96375; 99285; J2270; J2405; J7030

== ENCOUNTER 2023-10-15 11:08 | Emergency (ER) | payer OTHER, SELFPAY ==
--- NOTE | 2023-10-15 11:18 | CT_ITS ---
WS: [id number] CT ABDOMEN AND PELVIS NONCONTRAST HISTORY: Abdominal pain TECHNIQUE: Imaging performed through the abdomen and pelvis. Coronal and sagittal reformats are submi tted. All CT scans at [facility] use at least one of these dose optimization techniques: auto mated exposure control; mA and/or kV adjustment per patient size (includes targeted exams where dose is matched to clinical indication); or iterative reconstruction. DLP: 2206.04 mGy.cm COMPARISON: 10/13/2023 Lower thorax: Lung bases are clear. Visualized heart is normal. No hiatal hernia. Liver: Severe hepatic steatosis. No bile duct dilatation. Gallbladder: Prior cholecystectomy. Pancreas: Mild pancreatic atrophy. Spleen: Spleen is enlarged measuring 16.4 cm in length. Spleen has been slightly enlarged on prior st ud but has increased by approximately 2 cm in length since 2008. Adrenal glands: Normal. No mass. Right kidney: Staghorn calculus in the central renal pelvis. There is no obstruction. No perinephric stranding. Left kidney: Normal size kidney with no mass or hydronephrosis. Aorta: Normal abdominal aorta, no aneurysm or atherosclerosis. Numerous small foci of free air scattered throughout the peritoneal cavity. GI tract: Patient is status post gastric bypass surgery. There is increased soft tissue thickening an d inflammation near the gastrojejunal anastomosis. There does appear to be air at this location and t his is probably the site of the perforation which can be related to ischemia or ulcer. Abdominal wall: Ventral abdominal wall hernia contains fat only. Pelvis: Small amount of free fluid in the pelvis. Urinary bladder is not distended. Evaluation of the pelvic structures limited by body habitus and artifact. Osseous structures: Unremarkable. IMPRESSION: 1. Small amount of free air in the peritoneal cavity. 2. Status post gastric bypass surgery. 3. Suspect the perforation is associated with the gastrojejunal anastomosis of the gastric bypass live rgery. There is wall thickening and foci of free air extending through the wall near the anastomosis. Likely related to ischemia or ulceration. 4. Severe hepatic steatosis. 5. RIGHT staghorn calculus. 6. Small amount of free fluid in the pelvis. 7. Prior cholecystectomy. Notified Reji Jaimes DO at 10/15/2023 12:36 PM.
[2023-10-15 11:19] VITALS: BP 163/80; PULSE 108; RESP 16; TEMP 36.7; O2SAT 98; BMI 57.7
[2023-10-15 11:48] LABS: Basophils % 0.1 %; Eosinophils # 0.1 10^3/uL (0.0-0.8); Eosinophils % 0.6 %; Hematocrit 32.5 % (36-47); Lymphocytes % 12.5 %; Mean Corpuscular HGB Conc 34.2 g/dL (30-55); Mean Corpuscular Hemoglobin 39.4 pg (27-33); Mean Corpuscular Volume 115.2 fl (85-98); Mean Platelet Volume 10.9 fL (7.4-10.4); Monocytes # 0.2 10^3/uL (0.2-0.9); Monocytes % 2.9 %; Neutrophils # 6.64 10^3/uL (1.8-7.7); Neutrophils % 83.4 %; Nucleated Red Blood Cells % 0 %; Platelet Count 197 10^3/cmm (157-399); Red Blood Count 2.82 10^6/uL (3.85-5.65); Red Cell Distribution Width 14.8 % (12.1-15.1); White Blood Count 7.97 10^3/uL (3.29-11.43)
[2023-10-15 11:59] VITALS: PULSE 97; RESP 18; O2SAT 97
[2023-10-15 12:03] LABS: Alanine Aminotransferase 22 U/L (0-33); Albumin Level 2.9 g/dL (3.5-5.2); Alkaline Phosphatase 128 U/L (35-105); Anion Gap 12.2 (5-19); Aspartate Amino Transferase 36 U/L (0-32); Blood Urea Nitrogen 7 mg/dL (6-20); Calcium 8.2 mg/dL (8.5-10.5); Carbon Dioxide 25 mmol/L (22-29); Chloride 106 mmol/L (98-107); Creatinine Clr Calc Pharmacy 211.2619; Glomerular Filtration Rate 130.1 mL/min (90-130); Glucose 88 mg/dL (65-115); Lipase 5 U/L (13-60); Osmolality Calculated 287 mOsm/kg (285-295); Potassium 3.2 mmol/L (3.5-5.1); Sodium 140 mmol/L (136-145); Total Bilirubin 1.7 mg/dL (0.15-1.2); Total Protein 5.9 g/dL (6.6-8.7)
[2023-10-15 12:04] LABS: Lactic Sepsis W/Reflex 1.4 mmol/L (0.5-2.2)
--- NOTE | 2023-10-15 12:23 | ED_ITS ---
HPI - Nausea/Vomiting/Diarrhea 2 General: Chief complaint: Nausea/Vomiting/Diarrhea Stated complaint: vomiting, left side pain Time Seen by Provider: 10/15/23 11:17 Source: patient Mode of arrival: ambulatory History of Present Illness: 53-year-old female presents emergency ro om complaining of left-sided pain with nausea vomiting she was seen 2 days ago with similar complaints. No fever sweats or chills CT done at the original visit as well as lab work was unremarkable except for mild elevation in her T. bili. She has previously had a cholecystectomy. There is no evidence of inflammation of the pancreas on the previous scan. MD elicited complaint: nausea and vomiting Associated nausea: Yes Associated symtoms: Reports nausea; Denies bloating, chest pain, dysuria, fatigue or malaise Review of Systems 2 Const: Denies: fever(s), chills, body aches, change in appetite, fatigue or malaise ENMT: Denies: throat pain, ear or mastoid pain, nasal discharge or nasal congestion Card: Denies: chest pain, edema, dyspnea on exertion or orthopnea Resp: Denies: dyspnea, productive cough or non-productive cough GI: Reports: abdominal pain, nausea and vomiting; Denies: hematemesis, coffee ground emesis, diarrhea, constipation, bloating, hematochezia or melena : Denies: flank pain, difficulty voiding, dysuria, urinary frequency or urinary urgency Skin/Breast: Denies: rash or pruritus PFSH ED 2 PFSH: Medical History (Updated 10/13/23 @ 08:17 by Reji Jaimes DO) Peroneal tendinitis Hypertension Urinary frequency Urgency incontinence Primary osteoarthritis of right knee Morbid obesity with BMI of 70 and over, adult Surgical History Hx of foot surgery Hx of cholecystectomy Family History Father Diabetes Other Cancer Social History Smoking and tobacco/nicotine status: never used tobacco/nicotine Alcohol intake: current Alcohol intake frequency: holidays/special occasions only Substance/Drug Use: never Adopted: No Caregiver/support person: No Lives independently: Yes Marital status: Current occupational status: employed Current gender identity: Female Physical Exam 2 Const: GENERAL APPEARANCE: cooperative and comfortable O RIENTATION/CONSCIOUSNESS: Yes awake, Yes oriented to person, Yes oriented to place and Yes oriented to time HENMT: COMMON NORMALS: normocephalic, atraumatic, hearing grossly normal bilaterally, external ears normal, EAC's normal, TM's normal bilaterally, Normal nasal mucous membranes and turbinates present, moist oral mucous membranes and oropharynx normal HEAD & SCALP: normocephalic and atraumatic NOSE: Normal nasal mucous membranes and turbinates present EXTERNAL EAR: Yes external ears normal EXTERNAL AUDITORY CANAL: EAC's normal TYMPANIC MEMBRANE: TM's normal bilaterally Eye: COMMON NORMALS: Equal, round and reactive pupils present, EOMs intact bilaterally, conjunctivae normal and no scleral icterus CONJUNCTIVA: Yes conjunctivae normal PUPIL: Yes Equal, round and reactive pupils present Neck/C-Spine: COMMON NORMALS: full ROM, no lymphadenopathy, supple and no JVD Lymph: LYMPHATIC: no lymphadenopathy noted and no lymphedema noted Resp: COMMON NORMALS: normal respiratory effort, No retractions, No use of accessory muscles and clear to auscultation bilaterally AUSCULTATION: clear to auscultation bilaterally Cardio: COMMON NORMALS: no JVD, regular rate, regular rhythm and No murmurs present (Cardio) RATE: regular rate RHYTHM: regular rhythm GI: COMMON NORMALS: No hepatosplenomegaly present AUSCULTATION: Yes normoactive bowel sounds PALPATION: Yes Tenderness to palpation present (GI) (Epigastric left upper quadrant), No Guarding due to palpation present (GI) and Yes No hepatosplenomegaly present Extremity: COMMON NORMALS: normal to inspection, capillary refill normal, no clubbing, cyanosis or edema, no calf tenderness and no pedal edema Neuro: SENSORIUM/ORIENTATION: Yes oriented to person, Yes oriented to place and Yes oriented to time Skin: COMMON NORMALS: no rashes or lesions noted GENERAL SKIN EXAM: no rashes or lesions noted Course 2 Vital Signs: Vital signs: Vital Signs Temperature 98.1 F 10/15/23 11:19 Pulse Rate 99 10/15/23 17:40 Respiratory Rate 18 10/15/23 17:40 Blood Pressure 161/78 10/15/23 17:40 Pulse Oximetry 96 10/15/23 17:40 Oxygen Delivery Me thod Room Air 10/15/23 17:40 MDM - Nausea/Vomiting/Diarrhea Medical Decision Making CT now shows perforation with free air in the abdomen. Discussed with her bariatric surgeon from [place] they advised against an NG tube but do recommend that we continue with as resuscitative efforts that already been begun including IV fluids pain and nausea medications as well as Zosyn. Have discussed findings with the patient. Reviewed with Dr. Levy the free air and perforation is new compared to CT 2 days ago. Patient will require transfer to facility that is familiar with bariatric surgeries and their follow-up complications. Transfer to [facility] to see patient's original surgeon. Medical Records I reviewed the patient's medical records. Lab Data I reviewed the patient's lab results. 10/15/23 11:41 10/15/23 11:41 Laboratory Results WBC 7.97 10^3/uL (3.29-11.43) 10/15/23 11:41 RBC 2.82 10^6/uL (3.85-5.65) L 10/15/23 11:41 Hgb 11.10 g/dL (11.27-16.99) L 10/15/23 11:41 Hct 32.5 % (36-47) L 10/15/23 11:41 MCV 115.2 fl (85-98) H 10/15/23 11:41 MCH 39.4 pg (27-33) H 10/15/23 11:41 MCHC 34.2 g/dL (30-55) 10/15/23 11:41 RDW 14.8 % (12.1-15.1) 10/15/23 11:41 Plt Count 197 10^3/cmm (157-399) 10/15/23 11:41 MPV 10.9 fL (7.4-10.4) H 10/15/23 11:41 Neut % (Auto) 83.4 % 10/15/23 11:41 Lymph % (Auto) 12.5 % 10/15/23 11:41 [place] % (Auto) 2.9 % 10/15/23 11:41 Eos % (Auto) 0.6 % 10/15/23 11:41 Baso % (Auto) 0.1 % 10/15/23 11:41 Neut # (Auto) 6.64 10^3/uL (1.8-7.7) 10/15/23 11:41 Lymph # (Auto) 1.0 10^3/uL (0.8-4.8) 10/15/23 11:41 [place] # (Auto) 0.2 10^3/uL (0.2-0.9) 10/15/23 11:41 Eos # (Auto) 0.1 10^3/uL (0.0-0.8) 10/15/23 11:41 Baso # (Auto) 0.0 10^3/uL (0.0-0.1) 10/15/23 11:41 Nucleated RBC % (auto) 0 % 10/15/23 11:41 Nucleated RBCs # 0.0 /100WBC 10/15/23 11:41 Sodium 140 mmol/L (136-145) 10/15/23 11:41 Potassium 3.2 mmol/L (3.5-5.1) L 10/15/23 11:41 Chloride 106 mmol/L (98-107) 10/15/23 11:41 Carbon Dioxide 25 mmol/L (22-29) 10/15/23 11:41 Anion Gap 12.2 (5-19) 10/15/23 11:41 BUN 7 mg/dL (6-20) 10/15/23 11:41 Creatinine 0.5 mg/dL (0.5-0.9) 10/15/23 11:41 GFR Calculation 130.1 mL/min (90-130) H 10/15/23 11:41 Glucose 88 mg/dL (65-115) 10/15/23 11:41 Calculated Osmolality 287 mOsm/kg (285-295) 10/15/23 11:41 Lactic Acid 1.4 mmol/L (0.5-2.2) 10/15/23 11:41 Calcium 8.2 mg/dL (8.5-10.5) L 10/15/23 11:41 Magnesium 2.0 mg/dL (1.7-2.3) 10/15/23 11:41 Total Bilirubin 1.7 mg/dL (0.15-1.2) H 10/15/23 11:41 AST 36 U/L (0-32) H 10/15/23 11:41 ALT 22 U/L (0-33) 10/15/23 11:41 Alkaline Phosphatase 128 U/L (35-105) H 10/15/23 11:41 Total Protein 5.9 g/dL (6.6-8.7) L 10/15/23 11:41 Albumin 2.9 g/dL (3.5-5.2) L 10/15/23 11:41 Globulin 3.0 g/dL (1.3-4.6) 10/15/23 11:41 Lipase 5 U/L (13-60) L 10/15/23 11:41 Urine Color Yellow (Yellow) 10/15/23 12:01 Urine Appearance Cloudy (CLEAR) A 10/15/23 12:01 Urine pH 6 (5-7) 10/15/23 12:01 Ur Specific [place] 1.015 (1.005-1.030) 10/15/23 12:01 Urine Protein 1+ (Negative) H 10/15/23 12:01 Urine Glucose (UA) Norm (Normal) 10/15/23 12:01 Urine Ketones 1+ (Negative) H 10/15/23 12:01 Urine Blood 3+ (Negative) H 10/15/23 12:01 Urine Nitrate Positive (Negative) H 10/15/23 12:01 Urine Bilirubin 1+ (Negative) H 10/15/23 12:01 Urine Urobilinogen 8 mg/dL (Negative) H 10/15/23 12:01 Ur Leukocyte Esterase 2+ (Negative) H 10/15/23 12:01 Urine RBC 5-10 /hpf (0-2) H 10/15/23 12:01 Urine WBC Too numerous to cnt /hpf (0-5) H 10/15/23 12:01 Ur Squamous Epith Cells 5-10 /hpf (0-5) H 10/15/23 12:01 Amorphous Sediment Not Reportable 10/15/23 12:01 Urine Bacteria 1+ /hpf (NONE) H 10/15/23 12:01 Urine Mucus 1+ /hpf 10/15/23 12:01 All radiology interpretation(s) finalized by discharge Discharge Plan Discharge Patient Disposition: Transfer to ED Condition: Stable Prescriptions: No Action medroxyprogesterone [Depo-Provera] 150 mg/mL suspension See Rx Instructions .ROUTE .COMPLEX Rx Instructions: 150 mg intramuscularly every 9 weeks fluticasone propionate [Flonase Allergy Relief] 50 mcg/actuation spray,suspension 1 spray INTRANASAL DAILY hydrocodone-acetaminophen 7.5-325 mg tablet 1 tab PO Q4H PRN (Reason: Pain) nystatin 100,000 unit/gram cream 1 applic TOPICAL TID PRN (Reason: unknown) Citrucel 500 mg Tablet 1,000 mg PO DAILY Nystop 100,000 unit/gram powder 1 applic TOPICAL BID PRN (Reason: unknown) Prilosec OTC 20 mg Tablet,Delayed Release (Dr/Ec) 20 mg PO DAILY Probiotic Blend 2 billion cell-50 mg Capsule 2 cap PO DAILY sulfamethoxazole-trimethoprim [Bactrim DS] 800-160 mg tablet 1 tab PO BID 7 Days Qty: 14 0RF Referrals: Joselin Rueda MD [Primary Care Provider] - Coding Level of Care Code ED Bottom Bleacher for Joel Fair
[2023-10-15 12:33] LABS: Specific Gravity, Urine 1.015 (1.005-1.030); Urine Appearance Cloudy (CLEAR); Urine Color Yellow (Yellow); pH Urine 6 (5-7)
[2023-10-15 12:34] LABS: Add Urine Microscopic? YES; Bilirubin Urine 1+ (Negative); Blood Urine 3+ (Negative); Glucose Urine UA Norm (Normal); Ketones Urine 1+ (Negative); Leukocyte Esterase Urine 2+ (Negative); Nitrate Urine Positive (Negative); Protein Urine 1+ (Negative); Urobilinogen Urine 8 mg/dL (Negative)
[2023-10-15 12:50] LABS: Add Urine Culture? Yes; Bacteria Urine 1+ /hpf; Mucus Urine 1+ /hpf; WBC Urine TOO NUMEROUS TO CNT /hpf (0-5)
[2023-10-15] MEDS: piperacillin-tazobactam 3.375 GM in sodium chloride 0.9% (plus) 50 ML IV (13:35)
[2023-10-15 13:39] VITALS: BP 155/105; PULSE 90; RESP 16; O2SAT 99
[2023-10-15] MEDS: sodium chloride 0.9% 1,000 ML 999 ML IV (13:53)
[2023-10-15] MEDS: sodium chlor 0.9% + KCl 20 mEq 20 MEQ/1,000 ML BAG 125 MEQ IV (14:18)
[2023-10-15] MEDS: ondansetron 2 mg/ML SDV 2 mL 4 MG IVP (15:05)
[2023-10-15 17:40] VITALS: BP 161/78; PULSE 99; RESP 18; O2SAT 96
== END 2023-10-15 18:19 ==
PROVIDERS: Emergency Provider Family Medicine; PCP Family Medicine
DX: R11.2 Nausea with vomiting, unspecified (principal); R10.9 Unspecified abdominal pain; I10 Essential (primary) hypertension
CPT/HCPCS: 36415; 74176; 80053; 81001; 83605; 83690; 83735; 85025; 87040; 87086; 96365; 96375; 99285; J2405; J2543; J3480; J7030

== ENCOUNTER 2023-11-20 17:31 | Emergency (ER) | payer OTHER, SELFPAY ==
[2023-11-20 17:36] VITALS: BP 186/92; PULSE 111; RESP 14; TEMP 36.7; O2SAT 97
--- NOTE | 2023-11-20 17:46 | ECG_ITS ---
[facility] Test Date: 2023-11-20 Pat Name: Leda Huerta Department: Room: Gender: Female Press Officer: : 1970 Requested By: Xavier Stokes Order Number: [id number] Lyric MD: Abraham Dee M.D. Measurements Intervals [place] Rate: 105 P: 19 ME: 135 QRS: 82 QRSD: 84 T: 46 QT: 306 QTc: 406 Interpretive Statements SINUS TACHYCARDIA Baseline artifact Compared to ECG 10/13/2023 06:25:56 ST (T wave) deviation now present Sinus rhythm no longer present Sinus arrhythmia no longer present Intraventricular conduction delay no longer present Electronically Signed On 11-21-2023 9:18:04 CDT by Abraham Dee M.D. [id number]
[2023-11-20 18:11] VITALS: BP 131/62; PULSE 103; O2SAT 100
[2023-11-20 18:30] VITALS: BP 128/88; PULSE 67; O2SAT 97
--- NOTE | 2023-11-20 18:51 | W.ED.WEAKNES ---
HPI - Weakness General: Chief complaint: Weakness Stated complaint: weakness post bypass Time Seen by Provider: 11/20/23 17:48 History of Present Illness: 53-year-old female presents emerged part with complaints of 9 out of 10 abdominal pain. She states that she is had increased weakness that has been worsening over the previous 1 week. She states she has had greater than 10 episodes of nausea and vomiting. She states she is unable to keep any food down feels very weak and dehydrated. She states that she is having epigastric pain. She denies fevers chills or night sweats. Associated symptoms: Reports nausea and vomiting Review of Systems General: Reports: 10 or more systems reviewed and unremarkable except in HPI and below GI: Reports: abdominal pain, nausea and vomiting [facility] ED PFSH: Medical History (Updated 11/20/23 @ 22:15 by Ronald Muñoz MD) Peroneal tendinitis Hypertension Urinary frequency Urgency incontinence Primary osteoarthritis of right knee Morbid obesity with BMI of 70 and over, adult Surgical History Hx of foot surgery Hx of cholecystectomy Family History Father Diabetes Other Cancer Social History Smoking and tobacco/nicotine status: never used tobacco/nicotine Alcohol intake: current Alcohol intake frequency: holidays/special occasions only Substance/Drug Use: never Adopted: No Caregiver/support person: No Lives independently: Yes Marital status: Current occupational status: employed Current gender identity: Female Physical Exam Narrative: EXAM NARRATIVE: General: Alert, no acute distress. Skin: Warm, dry, Intact. Head: Normocephalic, atraumatic. Neck: Supple, trachea midline. Eye: Extraocular movements are intact. PERRLA Ears, nose, mouth and throat: mucosa moist. Cardiovascular: Regular, Normal peripheral perfusion. Respiratory: Lungs are clear to auscultation, respirations are non-labored, breath sounds are equal, Symmetrical chest wall expansion. Gastrointestinal: Soft, tender to palpation to the epigastric region, Non distended, Normal bowel sounds. Musculoskeletal: Normal ROM, no deformity. Neurological: Alert and oriented, No focal neurological deficit observed. Psychiatric: Cooperative, appropriate mood & affect. Course Vital Signs: Vital signs: Vital Signs Temperature 98.1 F 11/20/23 17:36 Pulse Rate 102 H 11/20/23 21:17 Respiratory Rate 20 H 11/20/23 21:17 Blood Pressure 149/61 11/20/23 21:17 Pulse Oximetry 98 11/20/23 21:17 Oxygen Delivery Me thod Room Air 11/20/23 17:36 MDM - Weakness Medical Decision Making Physical exam completed and documented. I did obtain a CBC patient was a very difficult IV access. Her white blood cell count is significantly elevated at 19.9 her hemoglobin is lower than previously at 9.2 and previously it was 11. I did contact the physician that is on-call for the bariatric surgeon at [facility] in and she is contacted the transfer center and advised that the patient could be transferred ER to ER and Dr. Fair the ER physician has accepted the patient. Medical Records I reviewed the patient's medical records. Lab Data I reviewed the patient's lab results. 11/20/23 20:05 11/20/23 21:00 Laboratory Results WBC 19.94 10^3/uL (3.29-11.43) H 11/20/23 20:05 RBC 2.30 10^6/uL (3.85-5.65) L 11/20/23 20:05 Hgb 9.20 g/dL (11.27-16.99) L 11/20/23 20:05 Hct 27.5 % (36-47) L 11/20/23 20:05 MCV 119.6 fl (85-98) H 11/20/23 20:05 MCH 40.0 pg (27-33) H 11/20/23 20:05 MCHC 33.5 g/dL (30-55) 11/20/23 20:05 RDW 17.0 % (12.1-15.1) H 11/20/23 20:05 Plt Count 254 10^3/cmm (157-399) 11/20/23 20:05 MPV 11.3 fL (7.4-10.4) H 11/20/23 20:05 Neut % (Auto) 87.8 % 11/20/23 20:05 Lymph % (Auto) 6.0 % 11/20/23 20:05 [place] % (Auto) 5.4 % 11/20/23 20:05 Eos % (Auto) 0.0 % 11/20/23 20:05 Baso % (Auto) 0.3 % 11/20/23 20:05 Neut # (Auto) 17.53 10^3/uL (1.8-7.7) H 11/20/23 20:05 Lymph # (Auto) 1.2 10^3/uL (0.8-4.8) 11/20/23 20:05 [place] # (Auto) 1.1 10^3/uL (0.2-0.9) H 11/20/23 20:05 Eos # (Auto) 0.0 10^3/uL (0.0-0.8) 11/20/23 20:05 Baso # (Auto) 0.1 10^3/uL (0.0-0.1) 11/20/23 20:05 Nucleated RBC % (auto) 0 % 11/20/23 20:05 Nucleated RBCs # 0.0 /100WBC 11/20/23 20:05 Sodium 136 mmol/L (136-145) 11/20/23 21:00 Potassium 4.0 mmol/L (3.5-5.1) 11/20/23 21:00 Chloride 104 mmol/L (98-107) 11/20/23 21:00 Carbon Dioxide 21 mmol/L (22-29) L 11/20/23 21:00 Anion Gap 15.0 (5-19) 11/20/23 21:00 BUN 10 mg/dL (6-20) 11/20/23 21:00 Creatinine 0.6 mg/dL (0.5-0.9) 11/20/23 21:00 GFR Calculation 105.4 mL/min (90-130) 11/20/23 21:00 Glucose 89 mg/dL (65-115) 11/20/23 21:00 Calculated Osmolality 281 mOsm/kg (285-295) L 11/20/23 21:00 Lactic Acid 2.3 mmol/L (0.5-2.2) H 11/20/23 21:00 Calcium 8.3 mg/dL (8.5-10.5) L 11/20/23 21:00 Magnesium 2.0 mg/dL (1.7-2.3) 11/20/23 21:00 Total Bilirubin 2.8 mg/dL (0.15-1.2) H 11/20/23 21:00 AST 63 U/L (0-32) H 11/20/23 21:00 ALT 30 U/L (0-33) 11/20/23 21:00 Alkaline Phosphatase 154 U/L (35-105) H 11/20/23 21:00 Total Protein 6.0 g/dL (6.6-8.7) L 11/20/23 21:00 Albumin 2.6 g/dL (3.5-5.2) L 11/20/23 21:00 Globulin 3.4 g/dL (1.3-4.6) 11/20/23 21:00 Procalcitonin 1.27 ng/mL (0-0.5) H 11/20/23 21:00 All radiology interpretation(s) finalized by discharge EKG Data EKG 1: Interpretation: Twelve-lead EKG obtained at 1816 and reviewed at 1820 demonstrates sinus rhythm, ventricular rate 98, PA interval 116, QRS duration 93, QT 323, QTc 378. There is significant motion artifact. There is no ST elevation or depression to demonstrate acute ischemia or infarction at present. Discharge Plan Discharge Patient Disposition: Xfer Short-Term Hosp Clinical Impression: Sepsis, Abdominal pain, Anemia, Nausea & vomiting Condition: Stable Referrals: Joselin Rueda MD [Primary Care Provider] - Patient Instructions: Abdominal Pain (ED) Coding Level of Care Code ED Replenisher for Joel Fair
[2023-11-20 20:09] LABS: Basophils # 0.1 10^3/uL (0.0-0.1); Basophils % 0.3 %; Hematocrit 27.5 % (36-47); Lymphocytes # 1.2 10^3/uL (0.8-4.8); Mean Corpuscular HGB Conc 33.5 g/dL (30-55); Mean Corpuscular Volume 119.6 fl (85-98); Mean Platelet Volume 11.3 fL (7.4-10.4); Monocytes # 1.1 10^3/uL (0.2-0.9); Monocytes % 5.4 %; Neutrophils # 17.53 10^3/uL (1.8-7.7); Neutrophils % 87.8 %; Nucleated Red Blood Cells % 0 %; Platelet Count 254 10^3/cmm (157-399); White Blood Count 19.94 10^3/uL (3.29-11.43)
[2023-11-20 20:42] VITALS: RESP 20; O2SAT 100
[2023-11-20] MEDS: morphine 4 mg/mL SDV 1 mL IM (20:42)
[2023-11-20] MEDS: ondansetron 2 mg/ML SDV 2 mL 4 MG IM (20:42)
[2023-11-20 21:17] VITALS: BP 149/61; PULSE 102; RESP 20; O2SAT 98
[2023-11-20 21:35] LABS: Alanine Aminotransferase 30 U/L (0-33); Albumin Level 2.6 g/dL (3.5-5.2); Alkaline Phosphatase 154 U/L (35-105); Blood Urea Nitrogen 10 mg/dL (6-20); Calcium 8.3 mg/dL (8.5-10.5); Carbon Dioxide 21 mmol/L (22-29); Chloride 104 mmol/L (98-107); Creatinine Clr Calc Pharmacy 173.5096; Globulin 3.4 g/dL (1.3-4.6); Glomerular Filtration Rate 105.4 mL/min (90-130); Glucose 89 mg/dL (65-115); Lactic Sepsis W/Reflex 2.3 mmol/L (0.5-2.2); Osmolality Calculated 281 mOsm/kg (285-295); Sodium 136 mmol/L (136-145); Total Bilirubin 2.8 mg/dL (0.15-1.2)
[2023-11-20 21:37] LABS: Aspartate Amino Transferase 63 U/L (0-32)
[2023-11-20 21:42] LABS: Procalcitonin 1.27 ng/mL (0-0.5)
[2023-11-20] MEDS: piperacillin-tazobactam 3.375 GM in sodium chloride 0.9% (plus) 50 ML IV (22:11)
--- NOTE | 2023-11-20 22:47 | PC.NURSE ---
Per Dr Muñoz's order pt's order for bolus was no given due to the pt's transfer and the ability for all the fluids to be given in that time frame.
[2023-11-20 23:02] LABS: Reflex Lactate Order REFLEX LACTIC ORDERD
== END 2023-11-20 22:40 | disposition short-term general hospital (02) ==
PROVIDERS: Emergency Medicine; Emergency Provider Internal Medicine; PCP Family Medicine
DX: A41.9 Sepsis, unspecified organism (principal); D64.9 Anemia, unspecified; R11.2 Nausea with vomiting, unspecified; R10.9 Unspecified abdominal pain; I10 Essential (primary) hypertension; R10.13 Epigastric pain; Z98.84 Bariatric surgery status
CPT/HCPCS: 36415; 80053; 83605; 83735; 84145; 85025; 93005; 96365; 96372; 99284; J2270; J2405; J2543